=== PATIENT | male | born 1980 | race Two or more races ===

== ENCOUNTER 2024-06-24 11:11 | Outpatient (AMB) | payer BC, SELFPAY ==
--- NOTE | 2024-06-24 11:22 | GSCOFFNT_ITS ---
Vital Signs - [facility] 06/24/24 11:24 Height 1.83 m Height Method Stated Weight 133.866 kg Weight Measurement Method Standing Scale BMI 39.9 BP 149/89 H Blood Pressure Source Automatic Cuff Blood Pressure Location Right Upper Arm Position Sitting Respiration 19 Pulse 81 Pulse Source Monitor Temp 98.2 F Temp Source Temporal Artery Scan Pulse Oximetry (%) 96 Oxygen Delivery Method Room Air Med/Allergies Allergies & Medications Allergies lactose Allergy (Intermediate, Verified 06/24/24 11:24) RASH AND DIARRHEA Medication Reconciliation levofloxacin 750 mg tablet 750 mg PO QDAY #4 tabs 06/20/24 [Rx Confirmed 06/24/24] tramadol 50 mg tablet 50 mg PO Q6HR PRN Pain 5 days #12 tabs 06/20/24 [Rx Confirmed 06/24/24] MA Intake Visit Data Collection New Patient or Established: Established Patient (seen at [facility] within 3 years) Seen by Clinical Staff ONLY (RN/MA): No Reason for Visit:: FOLLOW UP CHOLELITHIASIS Pain Present Currently: No [employer] Required: No PCP or OBGYN visit in last 3 months: Yes Hx Now: No Do You Feel Safe at Home: Yes Authorities Contacted: N/A Smoking Status Smoking Status: Never smoker Immunization / Flu Flu Vaccine in the Last 12 Months: No Flu Vaccine Exclusion Criteria: Refused by Patient Past Medical History Past Medical History CARDIAC: Negative Congestive Heart Failure RESPIRATORY: Negative Chronic Obstructive Pulmonary Disease (COPD) GENITOURINARY: Negative Renal Disease ENDOCRINE: Negative Diabetes Mellitus Type 1 or Diabetes Mellitus Type 2 Social History SMOKING STATUS: Smoking status: Never smoker ALCOHOL: Alcohol Intake: Never HOUSING: Housing: House LIVES WITH: Lives With: Family HPI HPI Narrative 43M here for follow up of cholelithiasis. Pt was discharged on 06/20 after being treated for enteritis/symptomatic cholelithiasis as well as YUKO and pneumonia. Pt reports he feels much better with no current abdominal pain, no nausea, he is avoiding fatty foods but otherwise eating well with no diarrhea. Pt confirms he has never had similar pain ROS Review of Systems Systems Reviewed: All systems reviewed, normal except as documented Objective/Exam General General Appearance: alert, cooperative and well groomed Resp Respiratory exam: Absent respiratory distress Results CT, US reviewed Assessment & Plan Diagnosis / Problem List (1) Right upper quadrant abdominal pain: Status: Acute Assessment & Plan: 43M recently admitted for severe RUQ pain with findings of enteritis, cholelithiasis and PNA, recovering well clinically. I explained that his symptoms may or may not related to be cholelithiasis, and that if they were there is a 30% chance of recurrent symptoms. I informed him that surgery is reasonable to pursue given his overall health and enumerated risks including need for conversion to open, bleeding, infection, injury to nearby structures requiring further procedures or potentially a major surgery (which would need to be done at a tertiary center). Pt expressed understanding and to prefers to hold off on surgery for now, would like to follow up in 6 weeks and will consider surgery if symptoms recur Office Procedures GNS Level of Care Nursing/Assessment Patient Status: Established Patient Nursing Assessment/Reassesment: Medication Reconciliation, Update PMH in EMR and Vital Signs Coordination of Care: Complex Care and Chronic Disease 1-5, Education Complex Pt/Fam, Consent,records obtained, informed consent, Results/Orders obtained and Staff clarify orders Established Patient Charge Established Patient Point Assignment: 95 Established Patient Point Charge: EP Level 3 (80-115) Patient Portal Questionaires Social History Living Situation History Housing: House Tobacco History Smoking Status: Never smoker Alcohol History Alcohol Intake: Never Domestic Abuse History Do You Feel Safe at Home: Yes Review of Systems Report any current symptoms Only answer those that you have currently: Past Medical History Past Medical History Have you ever been diagnosed with any of the following: Cardiology Problems Congestive Heart Failure: No Respiratory Problems Chronic Obstructive Pulmonary Disease (COPD): No Genital/Urinary Problems Renal Disease: No Endocrine Problems Diabetes Mellitus Type 1: No Diabetes Mellitus Type 2: No
[2024-06-24 11:24] VITALS: BP 149/89; PULSE 81; RESP 19; TEMP 36.8; O2SAT 96; BMI 39.9
== END 2024-06-24 11:39 | disposition home or self-care (01) ==
LOC: HODSRG 11:11
PROVIDERS: PCP Family Medicine; Referring Provider Family Medicine; Supervising Provider Surgery; Visit Provider Surgery
DX: R10.11 Right upper quadrant pain (principal)
CPT/HCPCS: 99213; G0463

== ENCOUNTER 2024-12-31 12:15 | Day surgery (SDC) | payer BC, SELFPAY ==
[2024-12-31] VITALS (13 sets, daily range): BP systolic 110–159; BP diastolic 55–99; PULSE 71–90; RESP 12–21; TEMP 36.8–36.9; O2SAT 95–100; BMI 35.1
[2024-12-31] MEDS: SODIUM CHLORIDE 0.9% 500 ML 500 ML 20 ML IV (14:04)
[2024-12-31] MEDS: DiphenhydrAMINE INJ 50 MG/ML VIAL 25 MG IVP (14:04)
[2024-12-31] MEDS: fentaNYL CIT INJ 50 mCg/ML AMP 2ML (ASD USE ONLY) IVP (14:11)
[2024-12-31] MEDS: MIDAZOLAM INJ 1 MG/ML VIAL 2 ML (ASD USE ONLY) 2 MG IVP (14:11)
[2024-12-31] MEDS: LIDOCAINE JELLY 2% (Urojet) 10 ML TUBE TOP (14:29)
== END 2024-12-31 15:30 | disposition home or self-care (01) ==
PROVIDERS: PCP Family Medicine; Referring Provider Specialist; Visit Provider Specialist
PROC: 0DBE8ZX Excision of Large Intestine, Via Natural or Artificial Opening Endoscopic, Diagnostic (ICD-10-PCS; CPT 45380; principal; 2024-12-31 12:15)
DX: K64.2 Third degree hemorrhoids (principal); K57.31 Diverticulosis of large intestine without perforation or abscess with bleeding; Z01.810 Encounter for preprocedural cardiovascular examination
CPT/HCPCS: 46221; 45378; A4649; J1200; J2250; J3010; J7040